=== PATIENT | female | born 1935 | race Caucasian/White ===

== ENCOUNTER → 2017-01-04 | Outpatient (CLI) | payer MEDICARE, OTHER ==
[~2017-01-04] MED LIST: CALTRATE 600 WI1 TAB PO; CENTRUM COMPLE1 EACH PO; GLUCOPHAGE500 MG PO; HALFPRIN81 MG PO; HYZAAR 100-12.1 EACH PO; KLONOPIN1 MG PO; NEURONTIN300 MG PO; PLAQUENIL200 MG PO; PRAVACHOL80 MG PO; PREMARIN0.3 MG PO; PRISTIQ ER50 MG PO; SYNTHROID88 MCG PO; ULTRAM50 MG PO
== END | disposition short-term general hospital (02) ==
LOC: CLPULM 12-07 16:09
DX: J44.9 Chronic obstructive pulmonary disease, unspecified (principal); K21.9 Gastro-esophageal reflux disease without esophagitis; E03.9 Hypothyroidism, unspecified; I10 Essential (primary) hypertension; G47.33 Obstructive sleep apnea (adult) (pediatric)